=== PATIENT | female | born 1990 | race Caucasian/White ===

== ENCOUNTER 2017-05-11 07:38 | Day surgery (SDC) | payer BC ==
[~2017-05-11 07:38] MED LIST: Sodium Chloride 0.9% 10 ML Syringe FLUSH PRN; Sodium Chloride 0.9% 2.5 ML Syringe FLUSH PRN
--- NOTE | 2017-05-11 08:30 | PCM.PREANE ---
Preanesthetic Assessment - Anesthesia/Transfusion/Family Hx Anesthesia History: Prior Anesthesia Without Reaction Family History of Anesthesia Reaction: No Transfusion History: No Prior Transfusion(s) Intubation History: Unknown - Review of Systems General: No Symptoms Pulmonary: No Symptoms Cardiovascular: No Symptoms Gastrointestinal: No Symptoms Neurological: No Symptoms Other: Reports: None - Physical Assessment NPO Status Date: 05/10/17 NPO Status Time: 22:00 O2 Sat by Pulse Oximetry: 98 Respiratory Rate: 16 Vital Signs: Last Vital Signs Temp 36.5 C 05/11/17 07:45 Pulse 99 05/11/17 07:45 Resp 16 05/11/17 07:45 BP 110/62 05/11/17 07:45 Pulse Ox 98 05/11/17 07:45 Height: 1.66 m Weight: 74.843 kg ASA Class: 2 Mental Status: Alert & Oriented x3 Airway Class: Mallampati = 2 Dentition: Reports: Normal Dentition Thyro-Mental Finger Breadths: 3 Mouth Opening Finger Breadths: 3 ROM/Head Extension: Full Lungs: Clear to Auscultation, Normal Respiratory Effort Cardiovascular: Regular Rate, Regular Rhythm - Lab Values: Laboratory Last Values WBC 6.52 K/uL (4.0-11.0) 05/10/17 09:00 RBC 4.48 M/uL (4.30-5.90) 05/10/17 09:00 Hgb 14.0 g/dL (12.0-16.0) 05/10/17 09:00 Hct 41.1 % (36.0-46.0) 05/10/17 09:00 MCV 91.7 fL (80.0-98.0) 05/10/17 09:00 MCH 31.3 pg (27.0-32.0) 05/10/17 09:00 MCHC 34.1 g/dL (31.0-37.0) 05/10/17 09:00 RDW Std Deviation 43.2 fl (28.0-62.0) 05/10/17 09:00 RDW Coeff of Richard 13 % (11.0-15.0) 05/10/17 09:00 Plt Count 257 K/uL (150-400) 05/10/17 09:00 MPV 10.00 fL (7.40-12.00) 05/10/17 09:00 Nucleated RBC % 0.0 /100WBC 05/10/17 09:00 Nucleated RBCs # 0 K/uL 05/10/17 09:00 HCG, Quant < 1.2 mIU/mL 05/10/17 09:00 - Allergies Allergies/Adverse Reactions: Allergies Allergy/AdvReac Type Severity Reaction Status Date / Time No Known Allergies Allergy Verified 05/06/17 15:34 - Blood Blood Available: No - Anesthesia Plan Pre-Op Medication Ordered: None - Acknowledgements Anesthesia Type Planned: MAC Pt an Appropriate Candidate for the Planned Anesthesia: Yes Alternatives and Risks of Anesthesia Discussed w Pt/Guardian: Yes Pt/Guardian Understands and Agrees with Anesthesia Plan: Yes PreAnesthesia Questionnaire Other HEENT History: wears glasses/contacts Gastrointestinal History: Reports: None 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: Reports: Polycystic Ovaries, Musculoskeletal History: Reports: Fracture Other Musculoskeletal History: hx of fx thumb as a child Dermatologic History: Reports: Eczema - Past Surgical History HEENT Surgical History: Reports: Oral Surgery, Tonsillectomy Other HEENT Surgeries/Procedures: wisdom teeth GI Surgical History: Reports: Cholecystectomy - SUBSTANCE USE Smoking Status *Q: Never Smoker Recreational Drug Use History: No - HOME MEDS Home Medications: Home Meds Ethinyl Estradiol/Drospirenone [Lynne 28] 1 tab PO DAILY 05/06/17 [History] PNV95/Ferrous Fumarate/FA [ Tablet] 1 tab PO DAILY 05/06/17 [History] metFORMIN [Glucophage XR] 750 mg PO DAILY 05/06/17 [History] - CURRENT (IN HOUSE) MEDS Current Meds: Current Medications Sodium Chloride (Saline Flush) 10 ml FLUSH ASDIRECTED PRN PRN Reason: Keep Vein Open Sodium Chloride (Saline Flush) 2.5 ml FLUSH ASDIRECTED PRN PRN Reason: Keep Vein Open
[2017-05-11] MEDS ORDERED: fentaNYL 100 MCG/2 ML SDV ONE (09:02)
[2017-05-11] MEDS ORDERED: Propofol 200 MG/20 ML SDV ONE ×4 (09:04→10:09)
[2017-05-11] MEDS ORDERED: Ondansetron 4 MG/2 ML SDV ONE (10:13)
--- NOTE | 2017-05-11 10:32 | PCM.OPNOTE ---
- General Post-Op/Procedure Note Date of Surgery/Procedure: 05/11/17 Operative Procedure(s): Operative hysteroscopy with polypectomy, curretings of endometrium Findings: Posterior endometrial polyp, otherwise normal appearing uterine cavity Pre Op Diagnosis: Endometrial polyp Post-Op Diagnosis: Endometrial polyp Anesthesia Technique: MAC Primary Surgeon: Shelly Guajardo Secondary Surgeon: Chencho Kaplan Pathology: Endometrial polyp, curretings of endometrium Fluid Replacement, Intraop: 900 (Fluid deficit 35ml NS) Output, Urine Amount: 50 EBL in mLs: 10 Complications: None Condition: Good Free Text/Narrative:: [id number]
--- NOTE | 2017-05-11 11:12 | PCM.POSTAN ---
POST ANESTHESIA ASSESSMENT - MENTAL STATUS Mental Status: Alert, Oriented - RESPIRATORY Respiratory Status: Respiratory Rate WNL, Airway Patent, O2 Saturation Stable - CARDIOVASCULAR CV Status: Pulse Rate WNL, Blood Pressure Stable - GASTROINTESTINAL GI Status: No Symptoms - PAIN Pain Score: 2 - POST OP HYDRATION Hydration Status: Adequate & Stable - OBSERVATIONS Free Text/Narrative:: no anesthesia problems
[2017-05-11 11:41] VITALS: BP 105/60
--- NOTE | 2017-05-11 14:46 | OR ---
SURGEON: Shelly Guajardo M.D. DATE OF PROCEDURE: 05/11/2017 PREOPERATIVE DIAGNOSIS: Endometrial polyp. POSTOPERATIVE DIAGNOSIS: Endometrial polyp. PROCEDURE: Operative hysteroscopy with polypectomy curettage of endometrium. CAPTAIN WAITER: Chencho Kaplan MS-4. ANESTHESIA: MAC. ESTIMATED BLOOD LOSS: Less than 10 mL. FLUIDS: 900 mL crystalloid. Fluid deficit 35 mL normal saline per hysteroscopy. FINDINGS: A 1 to 2 mm posterior polypoid lesion along the mid fundal right side, posterior side of the uterus. Otherwise, normal-appearing uterine cavity. DISPOSITION: The patient to PACU. SPECIMENS: To pathology. DESCRIPTION OF PROCEDURE: Lolita is a 26-year-old female, who with recent questionable possibility of a polyp on imaging study, therefore ensured to undergo hysteroscopy to further evaluate with possible polypectomy. Risks of the procedure have been discussed with her and proper consent was obtained. The patient was taken to the operating room, where she underwent MAC anesthetic, was placed in the modified dorsal lithotomy position. Prepped and draped in the usual sterile manner. Bladder was drained. Time-out was performed. A speculum was introduced in the vagina, 3 mm hysteroscope was now gently introduced using normal saline as distention media. The uterine cavity was able to be visualized. The fundus appeared normal. Right ostia followed by left ostia were easily able to be visualized. There is a small 1 to 2 mm polypoid lesion along the posterior aspect of the mid fundal region. Using hysteroscopic grasper, this was gently dissected at the base. Specimens to be sent to pathology. The remainder of the cavity was visualized. No other lesions were identified. The cavity appeared normal. Hysteroscope was now removed after draining normal saline. Gentle curettage was performed. Specimens to pathology. Hemostasis appeared evident. All instruments were removed from vagina. Sponge and needle counts were correct x2. The patient tolerated the procedure well. She will go to PACU in stable condition. VANNESA / GRISELDA /[id number]
== END 2017-05-11 11:25 | disposition home or self-care (01) ==
LOC: MW.SDS 07:38
PROVIDERS: ATTEND Obstetrics & Gynecology
DX: N84.0 Polyp of corpus uteri (principal); E28.2 Polycystic ovarian syndrome; Z79.899 Other long term (current) drug therapy; Z90.49 Acquired absence of other specified parts of digestive tract; Z90.89 Acquired absence of other organs; Z98.818 Other dental procedure status
CPT/HCPCS: 36415; 58558; 84702; 85027; J2405; J3010; 00952; 88305; J2704